=== PATIENT | male | born 2000 | race Caucasian/White ===

== ENCOUNTER 2025-02-23 08:46 | Emergency (ER) | payer OTHER, SELFPAY ==
--- NOTE | ~2025-02-23 | CT_ITS ---
EXAMINATION: CT ABDOMEN PELVIS WITHOUT IV CONTRAST HISTORY: R flank/RLQ pain, ? stone COMPARISON: There are no prior studies available for comparison. TECHNIQUE: CT scan of the abdomen and pelvis was performed without contrast using standard departmental protocol. Coronal and sagittal reformatted images were generated and reviewed. Oral contrast material was not administered per department protocol. This CT exam was performed with one or more of the following dose reduction techniques: automated exposure control, adjustment of the mA and/or kV according to patient size, use of iterative reconstruction technique. DLP: 273 mGy-cm FINDINGS: LOWER CHEST: The visualized lung bases are clear. There is no pleural effusion. CARDIOVASCULATURE: The heart is normal in size. There is no pericardial effusion. LIVER: The liver is normal in size and contour. The liver has an unremarkable unenhanced appearance. GALLBLADDER / BILE DUCTS: The gallbladder is unremarkable. There is no intra or extrahepatic biliary ductal dilatation. SPLEEN: The spleen is normal in size and has an unremarkable unenhanced appearance. PANCREAS: The pancreas has an unremarkable unenhanced appearance. ADRENAL GLANDS: Unremarkable. KIDNEYS/RETROPERITONEUM: No renal calculi are identified. There is mild right hydronephrosis secondary to a 2 mm mid ureteral calculus at the level of the superior endplate of L4. LYMPH NODES: No retroperitoneal lymphadenopathy is identified in the abdomen or pelvis. VASCULATURE: The abdominal aorta is normal in caliber. MESENTERY/PERITONEUM: No free fluid. No masses. There is no free intraperitoneal gas. STOMACH: The stomach is collapsed, limiting evaluation. SMALL BOWEL: The small bowel is normal in caliber. COLON: The colon is unremarkable. APPENDIX: Normal. URINARY BLADDER/PELVIC ORGANS: The urinary bladder is collapsed, limiting evaluation. The prostate is normal in size. BONES / SOFT TISSUES: No suspicious bony or soft tissue abnormalities. CT/CT abdomen pelvis wo IV con IMPRESSION: Mild right hydronephrosis secondary to a 2 mm mid ureteral calculus. Electronically signed by: Rick Farmer MD 02/23/2025 10:30 AM EDT
[2025-02-23 08:48] VITALS: BP 110/78; PULSE 67; RESP 14; TEMP 36.9; O2SAT 98; BMI 20.8
--- NOTE | 2025-02-23 08:56 | ED_ITS ---
HPI - General Adult General Chief complaint: Abdominal Pain Stated complaint: pain in lower abd Time Seen by Provider: 02/23/25 08:54 Source: patient, RN notes reviewed and old records reviewed Mode of arrival: ambulatory Limitations: no limitations History of Present Illness ED Provider: Darrel [facility] narrative: Patient is a 24-year-old male presenting in the emergency department with complaint of 3 days of right flank pain radiating to right lower quadrant with associated nausea and vomiting. States he did have some dark colored urine last night but the color returned to normal this morning. Denies fevers. Mother reports history of kidney stones for herself. MD complaint: Flank pain Onset (ago): day(s) Related Data Previous Rx's ?Medication ?Instructions ?Recorded ondansetron 4 mg disintegrating 4 mg PO Q8H PRN nausea and 02/23/25 tablet vomiting #10 tabs oxycodone 5 mg tablet 5 mg PO Q8H PRN severe pain (scale 02/23/25 score 7-10) #8 tabs prednisone 20 mg tablet 20 mg PO DAILY #7 tabs 02/23 tamsulosin 0.4 mg capsule 0.4 mg PO DAILY #14 caps Allergies Allergy/AdvReac Type Severity Reaction Status Date / Time amoxicillin Allergy Anaphylaxis Verified 02/23/25 08:51 Review of Systems 2 Review of Systems: As per HPI Yes all other systems are reviewed and are negative Constitutional: Constitutional: Reports as per HPI [facility] Social History Social History Alcohol intake: current Alcohol intake frequency: a few times a month Smoked in Last 30 Days: No Advance Directives: No Advance Directives Information Provided: Yes Do you have a plan to hurt others: No Plan Physical Exam ED Vital Signs: Vital Signs - 24 hr 02/23/25 08:48 02/23/25 09:52 02/23/25 10:00 Temperature 98.4 F 98.7 F 98.1 F Pulse Rate 67 66 57 Respiratory Rate 14 20 15 Blood Pressure 110/78 107/69 107/58 L Pulse Oximetry 98 99 99 Oxygen Delivery Method Room Air Room Air Room Air 02/23/25 11:53 Temperature 98.2 F Pulse Rate 60 Respiratory Rate 12 Blood Pressure 100/60 Pulse Oximetry 100 Oxygen Delivery Method Room Air BMI result Body Mass Index 20.8 Vital signs have been reviewed and appear to be correct. Blood pressure normal. Heart rate normal. Respiratory rate normal. Temperature normal. Oxygen saturation normal. Const General: cooperative, healthy appearing and no acute distress Orientation/consciousness: oriented to person, oriented to place, oriented to time and patient oriented x3 Limitations: no limitations HENMT Head: Yes normocephalic and Yes atraumatic Ears: external ears normal General nose exam: Normal external nose present Face and sinus: Yes face symmetric Mouth: oropharynx normal and moist mucous membranes Throat: Yes uvula midline Eyes Pupils: Equal, round and reactive pupils present Neck Neck: Yes normal visual inspection and Yes supple Resp Effort & Inspection: normal respiratory effort and able to speak in complete sentences Auscultation: clear to auscultation bilaterally Cardio Rate: regular rate Rhythm: regular rhythm Heart sounds: S1 normal heart sound present and S2 normal heart sound present GI Palpation (GI): Soft to palpation, Tenderness to palpation present (GI) in the RLQ, no guarding and No Rebound tenderness present Auscultation: normoactive bowel sounds General: Yes CVA tenderness on the right Back/Spine/Pelvis Back: CVA tenderness Skin General skin exam: elasticity normal and turgor normal Neuro General: oriented to person, oriented to place, oriented to time, patient oriented x3, moves all extremities, no focal motor deficits and CN's II-XI intact bilaterally Cranial nerves: Yes Equal, round and reactive pupils present Cognition (Neuro): normal cognition Extrem General: Yes full ROM, Yes no pedal edema and Yes no calf tenderness Psych Mental Status: mental status grossly normal Affect: normal affect Thought process: Normal thought process present Medications Administered Discontinued Medications Generic Name Dose Route Start Last Admin Trade Name Darrell PRN Reason Stop Dose Admin Ketorolac Tromethamine 15 mg 02/23/25 09:14 02/23/25 09:58 Ketorolac Tromethamine 15 Mg/Ml Vial IVPUSH 02/23/25 09:15 15 mg ONCE ONE Administration Ondansetron HCl 4 mg 02/23/25 09:14 02/23/25 09:58 Ondansetron Hcl 4 Mg/2 Ml Vial IVPUSH 02/23/25 09:15 4 mg ONCE ONE Administration Medical Decision Making Medical Decision Making [facility] Narrative: Patient is a 24-year-old male presenting in the emergency department with complaint of 3 days of right flank pain radiating to right lower quadrant with associated nausea and vomiting. On exam patient is awake, A+Ox3, VS WNL, afebrile, normal neurological exam without focal deficits, physical exam findings as above. Given reported symptoms and physical exam findings, initial differential includes but is not limited to renal colic, obstructing calculi, hydronephrosis, UTI/pyelonephritis. Less likely appendicitis. Labs notable for last leukocytosis, anemia, no evidence of YOMAIRA. CT A/P notable for 2 mm obstructing mid ureter calculi on right side with mild hydronephrosis. My interpretation is in agreement with the radiologist's interpretation. Results discussed with patient and mother and all questions answered. UA is without evidence of infection. Case discussed with Dr. Chang who is in agreement with discharge home for outpatient treatment on prednisone, Flomax, Zofran and oxycodone for severe pain. Return precautions discussed with patient and mother at bedside. Patient verbalized understanding of and agreement with plan. Differential Diagnosis Differential Diagnoses: The differential diagnosis associated with the presentation includes As per [facility] Admission/Observation Consideration of admission/observation: Escalation of care including admission/observation considered Patient would have been admitted to the hospital had their work up had any findings where hospital admission was appropriate and their clinical presentation warranted hospital admission. Lab Data [facility] Lab Attestation statement: I reviewed the patient's lab results. As per [facility] 02/23/25 09:03 02/23/25 09:03 Labs: Lab Results 02/23/25 02/23/25 Range/Units 09:03 10:47 WBC 10.9 H (4.8-10.8) X10*3/uL RBC 4.57 L (4.60-5.80) X10*6/uL Hgb 12.8 L (14.0-18.0) g/dl Hct 37.5 L (42.0-52.0) % MCV 82.1 (80.0-98.0) fL MCH 28.0 (27.0-33.0) pg MCHC 34.1 (31.0-36.0) g/dl RDW 12.5 (11.0-16.0) % Plt Count 159 L (160-400) X10*3/uL MPV 11.8 (9.4-12.4) fL Immature Gran % (Auto) 0.4 (0.0-0.4) % Neut % (Auto) 75.2 H (45-73) % Lymph % (Auto) 13.9 L (20-40) % [place] % (Auto) 10.3 (2-11) % Eos % (Auto) 0.0 (0-4) % Baso % (Auto) 0.2 (0-2) % Lymph # (Auto) 1.5 (1.2-4.9) X10*3/uL [place] # (Auto) 1.1 (0.1-1.2) X10*3/uL Eos # (Auto) 0.0 (0.0-0.4) X10*3/uL Baso # (Auto) 0.0 (0.0-0.2) X10*3/uL Abs Immat Gran (auto) 0.04 H (0.00-0.03) X10*3/uL Absolute Neuts (auto) 8.2 (2.0-8.3) x10*3/uL Absolute Nucleated RBC 0.000 (0.0-0.012) X10*3/uL Nucleated RBC % (auto) 0.0 (0.0-0.2) /100WBC Sodium 140 (135-145) mmol/L Potassium 3.5 (3.3-5.1) mmol/L Chloride 104 (96-108) mmol/L Carbon Dioxide 26 (22-29) mmol/L Anion Gap 14 (12-20) BUN 17 H (9-16) mg/dL Creatinine 1.11 (0.5-1.4) mg/dL Estim Creat Clear Calc 83.7 Estimated GFR > 60 Random Glucose 107 (60-115) mg/dL Calcium 9.1 (8.4-10.2) mg/dL Magnesium 1.6 (1.6-2.6) mg/dL Total Bilirubin 1.9 H (0.0-1.0) mg/dL AST 24 (5-37) U/L ALT 31 (0-40) U/L Alkaline Phosphatase 68 (39-117) U/L Total Protein 7.2 (6.5-8.0) g/dL Albumin 5.1 H (3.5-5.0) g/dL Lipase 14 (8-78) U/L Urine Color Yellow Urine Appearance Clear Urine pH 6.5 (5.0-9.0) Ur Specific [place] >= 1.030 H (1.005-1.025) Urine Protein 30 (1+) H (Neg-Trace) mg/dL Urine Glucose (UA) Negative (Negative) mg/dL Urine Ketones Trace (Negative) mg/dL Urine Blood Large (3+) H (Negative) Urine Nitrite Negative (Negative) Ur Leukocyte Esterase Negative (Negative) Urine RBC 11-20 H (0-2) /HPF Urine WBC 0-5 (0-5) /HPF Ur Squamous Epith Cells 0-2 (0-2) /HPF Urine Bacteria None Seen (None Seen) Hyaline Casts 3-5 (0-2) /LPF Independent Interpretation I performed an independent interpretation of an: CT Scan Interpretation: 2 mm obstructing calculi right mid ureter with mild hydronephrosis on CT abdomen pelvis Radiology Impression Discussion of test interpretation with radiology: I have reviewed the radiologist's reading. Radiologist Impression: CT/CT abdomen pelvis wo IV con IMPRESSION: Mild right hydronephrosis secondary to a 2 mm mid ureteral calculus. External Record Review External record reviewed: Inpatient record, Office record and Outpatient record Prescription Management I considered prescription management with: Pain Medication and Other Critical Care Time Critical Care Time Critical Care Time: Yes Total Critical Care Time: 33 Attestation: I have personally provided critical care time exclusive of time spent on separately billable procedures. Time includes review of lab data, radiology results, discussion with consultants, and monitoring for potential decompensation. Intervention performed as documented. Discharge Plan Discharge Clinical Impression: Calculus, ureteral, Hydronephrosis concurrent with and due to calculi of kidney and ureter Patient Disposition: Home, Self-Care Instructions: Renal Colic (ED), Low Oxalate Diet (ED), Hydronephrosis (ED), Ureteral Stones (ED) Additional Instructions: You were evaluated in the emergency department for flank pain. Your CT scan showed evidence of a stone in your right ureter. The stone is 2 mm which will likely pass on its own. You are being prescribed prednisone to decrease inflammation, tamsulosin to allow the stone to pass more easily, and oxycodone as needed for severe pain. You can also take 600 mg of ibuprofen every 6 hours as needed for pain. Your being prescribed ondansetron which you can use every 8 hours as needed for nausea. You are being referred to Urology. Return to the emergency department if you develop worsening pain, persistent vomiting, fever 100.4? or greater, inability to urinate, or any other concerning symptoms. [facility] will be contacting you within 2 business?days after being discharged from the Emergency?Department.? During this?phone call, they will inform you when your follow up appointment will be scheduled. If you have not received a call from [facility] after 2 business?days, please call the?office at [phone]. Prescriptions: New prednisone 20 mg tablet 20 mg PO DAILY Qty: 7 0RF tamsulosin 0.4 mg capsule 0.4 mg PO DAILY Qty: 14 0RF ondansetron 4 mg tablet,disintegrating 4 mg PO Q8H PRN (Reason: nausea and vomiting) Qty: 10 0RF oxycodone 5 mg tablet 5 mg PO Q8H PRN (Reason: severe pain (scale score 7-10)) Qty: 8 0RF Rx Instructions: Partial Fill upon patient request. Referrals: [facility] [Provider Group, Urology] Clinical Impression: Hydronephrosis concurrent with and due to calculi of kidney and ureter; Calculus, ureteral Stand Alone Forms: Work/School Release Print Language: Latvian
[2025-02-23 09:06] LABS: MANUAL DIFF FLAG NO
[2025-02-23 09:13] LABS: Basophils Percent Auto 0.2 % (0-2); Hematocrit 37.5 % (42.0-52.0); Hemoglobin 12.8 g/dl (14.0-18.0); Imm Gran Abs Auto 0.04 X10*3/uL (0.00-0.03); Imm Gran Pct Auto 0.4 % (0.0-0.4); Lymphocytes Absolute Auto 1.5 X10*3/uL (1.2-4.9); Lymphocytes Percent Auto 13.9 % (20-40); Mean Corpuscular HGB Conc 34.1 g/dl (31.0-36.0); Mean Corpuscular Volume 82.1 fL (80.0-98.0); Mean Platelet Volume 11.8 fL (9.4-12.4); Monocytes Absolute Auto 1.1 X10*3/uL (0.1-1.2); Monocytes Percent Auto 10.3 % (2-11); Neutrophils Absolute Auto 8.2 x10*3/uL (2.0-8.3); Neutrophils Percent Auto 75.2 % (45-73); Platelet Count 159 X10*3/uL (160-400); Red Blood Count 4.57 X10*6/uL (4.60-5.80); Red Cell Distribution Width 12.5 % (11.0-16.0); White Blood Count 10.9 X10*3/uL (4.8-10.8)
[2025-02-23 09:25] LABS: Alanine Aminotransferase 31 U/L (0-40); Albumin Level 5.1 g/dL (3.5-5.0); Alkaline Phosphatase 68 U/L (39-117); Anion Gap 14 (12-20); Aspartate Amino Transferase 24 U/L (5-37); Bilirubin Total 1.9 mg/dL (0.0-1.0); Blood Urea Nitrogen 17 mg/dL (9-16); Calcium 9.1 mg/dL (8.4-10.2); Carbon Dioxide 26 mmol/L (22-29); Chloride 104 mmol/L (96-108); Creatinine Clr Calc Pharmacy 83.7; Estimated Glomerular Filt Rate > 60; Glucose Random 107 mg/dL (60-115); Lipase 14 U/L (8-78); Magnesium 1.6 mg/dL (1.6-2.6); Potassium 3.5 mmol/L (3.3-5.1); Sodium 140 mmol/L (135-145); Total Protein 7.2 g/dL (6.5-8.0)
[2025-02-23 09:52] VITALS: BP 107/69; PULSE 66; RESP 20; TEMP 37.1; O2SAT 99
[2025-02-23] MEDS: ondansetron HCL 4 MG/2 ML VIAL IVPUSH (09:58)
[2025-02-23] MEDS: Ketorolac Tromethamine 15 MG/ML VIAL IVPUSH (09:58)
[2025-02-23 10:00] VITALS: BP 107/58; PULSE 57; RESP 15; TEMP 36.7; O2SAT 99
--- NOTE | 2025-02-23 10:03 | PC.NURSE ---
24 M presents to ED with R abdominal pain 5/10 that radiates to R back since yesterday with n/v/d. A+Ox4 and ambulatory. Pt denies any SOB, RR even and unlabored. Pt denies any chest pain.
--- OUTSIDE RECORDS SUMMARY | 2025-02-23 10:08 | XMS_ITS | Clinical Summary ---
Author Organization [facility] Address [address] [place] [address] Phone Care Team Providers Care Wireline Operator Name Role Phone Physician, Pcp Unknown Primary Care Provider Kaylee vailable Allergies Active Allergy Reactions Criticality Noted Date Comments Amoxicillin Anaphylaxis High 02/22/2025 Encounters Date Type Department Care Team Description 02/22/2025 7:13 PM EDT - 02/23/2025 1:15 AM EDT Emergency [facility] Emergency [address] [place] [address] Discharge Disposition: Home or Self Care from Last 3 Months Medical History Medical History Date Comments No known health problems Social History Tobacco Use Types Packs/Day Years Used Date Smoking Tobacco: Never Smokeless Tobacco: Former Tobacco Cessation:Counseling Given: Not Answered Alcohol Use Standard Drinks/Week Comments Yes 0 (1 standard drink = 0.6 oz pur e alcohol) Sex and Gender Information Value Date Recorded Sex Assigned at Not on file Legal Sex Male 2:26 AM EST Gender Identity Not on file Sexual Orientation Not on file Obstetrics History Last Filed Vital Signs Vital Sign Reading Time Taken Comments Blood Pressure 103/67 02/22/2025 10:36 PM EDT Pulse 67 02/22/2025 10:36 PM EDT Temperature 37 C (98.6 F) 02/22/2025 10:36 PM EDT Respiratory Rate 16 02/22/2025 10:36 PM EDT Oxygen Saturation 99% 02/22/2025 10:36 PM EDT Inhaled Oxygen Concentration - - Weight 56.7 kg (125 lb) 02/22/2025 7:16 PM EDT Height 170.2 cm (5' 7 ) 02/22/2025 7:16 PM EDT Body Mass Index 19.58 02/22/2025 7:16 PM EDT Plan of Treatment Health Maintenance Due Date Last Done Comments HPV Vaccines (1 - Male 3-dose series) 2017 Meningococcal B Vaccine (1 of 2 - Standard) 2018 DTaP,Tdap,and Td Vaccines (7 - Td or Tdap) 09/06/2022 09/06/2012, 01/20/2007, 07/19/2003, Additional history exists COVID-19 Vaccine (1 - season) 2024 Influenza Vaccine (Season Ended) 2025 07/02/2017, 10/04/2014 Hepatitis B Vaccines Completed 01/31/2003, 2002, 2002 HIB Vaccines Completed 07/19/2003, 10/30, 2002, Additional history exists Pneumococcal Vaccine: Pediatrics (0 to 5 Years) and At-Risk Patients (6 to 64 Years) Completed 07/19/2003, 2002, 2002, Additional history exists IPV Vaccines Completed 01/20/2007, 10/2002, 2002, Additional history exists MMR Vaccines Completed 01/20/2007, 04/11/2003 Varicella Vaccines Completed 01/20/2007, 04/11/2003 Meningococcal ACWY Vaccine Aged Out 10/04/2014 N o longer eligible based on patient's age to complete this topic Hepatitis A Vaccines Aged Out No long er eligible based on patient's age to complete this topic RSV Immunization Patients Under 20 months Aged Out No longer eligible based on patient's age to complete this topic Procedures Procedure Name Priority Date/Time Associated Diagnosis Comments MUNGUIA URINE CULTURE TUBE STAT 02/22/2025 10:56 PM EDT URINALYSIS WITH REFLEX MICROSCOPIC AND CULTURE STAT 02/22/2025 10:56 PM EDT URINALYSIS WITH REFLEX MICROSCOPIC AND CULTURE STAT 02/22/2025 10:56 PM EDT CREATINE KINASE AND CKMB Add-On 02/22/2025 10:42 PM EDT CBC WITH AUTO DIFFERENTIAL STAT 02/22/2025 10:42 PM EDT LIPASE STAT 02/22/2025 10:42 PM EDT COMPREHENSIVE METABOLIC PANEL STAT 02/22/2025 10:42 PM EDT CBC AND DIFFERENTIAL STAT 02/22/2025 10:42 PM EDT from Last 3 Months Results * (ABNORMAL) Urinalysis with reflex microscopic and culture (02/22/2025 10:56 PM EDT) Pathologist [facility] Specific [place] Urine 1.028 1.003 - 1.030 LAB URINALYSIS - AUTOMATED METHOD 02/22/2025 11:29 PM [facility] pH, Urine 5.5 5.0 - 8.0 pH LAB URINALYSIS - AUTOMATED METHOD 02/22/2025 11:29 PM [facility] Leukocytes, Urine Small(A) Negative LAB URINALYSIS - AUTOMATED METHOD 02/22/2025 11:29 PM [facility] Nitrite, Urine Negative Negative LAB URINALYSIS - AUTOMATED METHOD 02/22/2025 11:29 PM [facility] Protein, Urine 300(A) <=Trace mg/dL LAB URINALYSIS - AUTOMATED METHOD 02/22/2025 11:29 PM [facility] Glucose, Urine Negative Negative mg/dL LAB URINALYSIS - AUTOMATED METHOD 02/22/2025 11:29 PM [facility] Ketones, Urine 15(A) Negative mg/dL LAB URINALYSIS - AUTOMATED METHOD 02/22/2025 11:29 PM [facility] Urobilinogen, Urine 1.0 0.2 - 1.0 mg/dL LAB URINALYSIS - AUTOMATED METHOD 02/22/2025 11:29 PM [facility] Bilirubin, Urine Negative Negative LAB URINALYSIS - AUTOMATED METHOD 02/22/2025 11:29 PM [facility] Blood, Urine Large(A) Negative LAB URINALYSIS - AUTOMATED METHOD 02/22/2025 11:29 PM EDT [facility] RBC, Urine 75(H) 0 - 4 /HPF LAB URINALYSIS - AUTOMATED METHOD 02/22/2025 11:29 PM EDT [facility] WBC, Urine 8.2(H) 0 - 4 /HPF LAB URINALYSIS - AUTOMATED METHOD 02/22/2025 11:29 PM EDT [facility] Squamous Epithelial, Urine 8 0 - 60 /LPF LAB URINALYSIS - AUTOMATED METHOD 02/22/2025 11:29 PM EDT [facility] Bacteria, Urine Negative Negative /HPF LAB URINALYSIS - AUTOMATED METHOD 02/22/2025 11:29 PM EDT [facility] Hyaline Casts, Urine 3.8(H) 0 - 3 /LPF LAB URINALYSIS - AUTOMATED METHOD 02/22/2025 11:29 PM EDT [facility] Urine Urine specimen obtained by clean catch procedure / Unknown Non-blood Collection / Unknown 02/22/2025 10:56 PM EDT 02/22/2025 11:12 PM EDT us Danneille Wilde DO LAB URINE ORDERABLES Sosa l Result [facility] [address] [place] [address], * [place] urine culture tube (02/22/2025 10:56 PM EDT) Extra Tube Hold for add-ons. 02/23/2025 1:01 AM EDT [facility] Comment:Auto resulted. Urine Urine specimen obtained by clean catch procedure / Unknown Non-blood Collection / Unknown 02/22/2025 10:56 PM EDT 02/22/2025 11:12 PM EDT us Ting Ho Von Wilde DO LAB URINE ORDERABLES Sosa l Result [facility] [address] [place] [address], * (ABNORMAL) CBC auto differential (02/22/2025 10:42 PM EDT) WBC 12.9(H) 4.8 - 10.8 K/mcL LAB HEMETOLOGY METHOD 02/22/2025 10:55 PM EDT [facility] RBC 4.80 4.50 - 5.50 M/mcL LAB HEMETOLOGY METHOD 02/22/2025 10:55 PM EDT [facility] Hemoglobin 13.5 13.5 - 17.5 g/dL LAB HEMETOLOGY METHOD 02/22/2025 10:55 PM EDT [facility] Hematocrit 41.6(L) 42.0 - 54.0 % LAB HEMETOLOGY METHOD 02/22/2025 10:55 PM EDT [facility] MCV 86.5 79.0 - 98.0 FL LAB HEMETOLOGY METHOD 02/22/2025 10:55 PM EDT [facility] MCH 28.1 27.0 - 32.0 pcg LAB HEMETOLOGY METHOD 02/22/2025 10:55 PM EDT [facility] MCHC 32.5 32.0 - 37.0 g/dL LAB HEMETOLOGY METHOD 02/22/2025 10:55 PM EDT [facility] RDW 12.2 11.0 - 15.0 % LAB HEMETOLOGY METHOD 02/22/2025 10:55 PM EDT [facility] Platelets 156 130 - 400 K/mcL LAB HEMETOLOGY METHOD 02/22/2025 10:55 PM EDT [facility] MPV 11.7(H) 7.0 - 11.0 FL LAB HEMETOLOGY METHOD 02/22/2025 10:55 PM EDT [facility] NRBC 0.0 <1.0 % LAB HEMETOLOGY METHOD 02/22/2025 10:55 PM EDT [facility] NRBC Absolute 0.00 <0.10 K/mcL LAB HEMETOLOGY METHOD 02/22/2025 10:55 PM EDT [facility] Neutrophils Relative 90.2 % LAB HEMETOLOGY METHOD 02/22/2025 10:55 PM EDT [facility] Lymphocytes Relative 3.8 % LAB HEMETOLOGY METHOD 02/22/2025 10:55 PM EDT [facility] Monocytes Relative 5.3 % LAB HEMETOLOGY METHOD 02/22/2025 10:55 PM EDT [facility] Eosinophils Relative 0.0 % LAB HEMETOLOGY METHOD 02/22/2025 10:55 PM EDT [facility] Basophils Relative 0.2 % LAB HEMETOLOGY METHOD 02/22/2025 10:55 PM EDT [facility] Immature Granulocytes Relative 0.5 % LAB HEMETOLOGY METHOD 02/22/2025 10:55 PM EDT [facility] Neutrophils Absolute 11.67(H) 1.50 - 7.00 K/mcL LAB HEMETOLOGY METHOD 02/22/2025 10:55 PM EDT [facility] Lymphocytes Absolute 0.49(L) 1.00 - 5.00 K/mcL LAB HEMETOLOGY METHOD 02/22/2025 10:55 PM EDT [facility] Monocytes Absolute 0.68 0.20 - 1.00 K/mcL LAB HEMETOLOGY METHOD 02/22/2025 10:55 PM EDT [facility] Eosinophils Absolute 0.00 0.00 - 0.50 K/mcL LAB HEMETOLOGY METHOD 02/22/2025 10:55 PM EDT [facility] Basophils Absolute 0.03 0.00 - 0.20 K/mcL LAB HEMETOLOGY METHOD 02/22/2025 10:55 PM EDT [facility] Immature Granulocytes Absolute 0.06(H) 0.00 - 0.03 K/mcL LAB HEMETOLOGY METHOD 02/22/2025 10:55 PM EDT [facility] Blood Venous blood specimen / Unknown Venipuncture / Unknown 02/22/2025 10:42 PM EDT 02/22/2025 10:46 PM EDT Candelario Anand DO LAB BLOOD ORDERABLES Final Res ult [facility] [address] [place] [address], [place] [phone] * Lipase (02/22/2025 10:42 PM EDT) Lipase 15 13 - 75 unit/L LAB CHEMISTRY METHOD 02/22/2025 11:19 PM EDT [facility] Blood Venous blood specimen / Unknown Venipuncture / Unknown 02/22/2025 10:42 PM EDT 02/22/2025 10:46 PM EDT Candelario Anand DO LAB BLOOD ORDERABLES Final Res ult Performing Organization Address City/[facility]/ZIP Co de Phone Number [facility] [address] [place] [address], [place] [phone] * (ABNORMAL) Creatine kinase and CKMB (02/22/2025 10:42 PM EDT) Total CK 186 22 - 269 unit/L LAB CHEMISTRY METHOD 02/22/2025 11:22 PM EDT [facility] CK-MB <1.0(L) 1.0 - 3.6 ng/mL LAB CHEMISTRY METHOD 02/22/2025 11:22 PM EDT [facility] CK-MB Index <0.0(L) 0.0 - 5.0 LAB CHEMISTRY METHOD 02/22/2025 11:22 PM [facility] Blood Venous blood specimen / Unknown Venipuncture / Unknown 02/22/2025 10:42 PM EDT 02/22/2025 10:46 PM EDT us Dannielle Wilde DO LAB BLOOD ORDERABLES Sosa l Result [facility] [address] [place] [address], [place] [phone] * (ABNORMAL) Comprehensive metabolic panel (02/22/2025 10:42 PM EDT) Sodium 140 133 - 145 mmol/L LAB CHEMISTRY METHOD 02/22/2025 11:19 PM [facility] Potassium 4.6 3.5 - 5.5 mmol/L LAB CHEMISTRY METHOD 02/22/2025 11:19 PM [facility] Chloride 106 96 - 110 mmol/L LAB CHEMISTRY METHOD 02/22/2025 11:19 PM [facility] CO2 24 21 - 32 mmol/L LAB CHEMISTRY METHOD 02/22/2025 11:19 PM [facility] Anion Gap 10 3 - 11 LAB CHEMISTRY METHOD 02/22/2025 11:19 PM [facility] Glucose 108(H) 70 - 100 mg/dL LAB CHEMISTRY METHOD 02/22/2025 11:19 PM [facility] BUN 14 5 - 25 mg/dL LAB CHEMISTRY METHOD 02/22/2025 11:19 PM [facility] Creatinine 1.60(H) 0.70 - 1.30 mg/dL LAB CHEMISTRY METHOD 02/22/2025 11:19 PM [facility] eGFR 62 >=60 mL/min/1. 73m2 LAB CHEMISTRY METHOD 02/22/2025 11:19 PM [facility] Comment:Calculation based on the Chronic Kidney Disease Epidemiology Collaboration (CKD-EPI) equation refit without adjustment for race. BUN/Creatinine Ratio 8.8 LAB CHEMISTRY METHOD 02/22/2025 11:19 PM EDT [facility] Calcium 9.5 8.5 - 10.5 mg/dL LAB CHEMISTRY METHOD 02/22/2025 11:19 PM [facility] AST (SGOT) 18 10 - 42 unit/L LAB CHEMISTRY METHOD 02/22/2025 11:19 PM T [facility] ALT (SGPT) 38 10 - 60 unit/L LAB CHEMISTRY METHOD 02/22/2025 11:19 PM T [facility] Alkaline Phosphatase 81 42 - 121 unit/L LAB CHEMISTRY METHOD 02/22/2025 11:19 PM [facility] Total Protein 7.7 6.0 - 8.0 g/dL LAB CHEMISTRY METHOD 02/22/2025 11:19 PM T [facility] Albumin 4.8 3.2 - 5.0 g/dL LAB CHEMISTRY METHOD 02/22/2025 11:19 PM T [facility] Total Bilirubin 1.9(H) 0.0 - 1.4 mg/dL LAB CHEMISTRY METHOD 02/22/2025 11:19 PM T [facility] Blood Venous blood specimen / Unknown Venipuncture / Unknown 02/22/2025 10:42 PM EDT 02/22/2025 10:46 PM EDT us Candelario Anand DO LAB BLOOD ORDERABLES Final Res ult [facility] [address] [place] [address], from Last 3 Months Insurance [facility] [place] [address] Care Teams Wireline Operator Relationship Specialty Start Date End Date Physician, Pcp Unknown PCP - General 02/23/25
[2025-02-23 10:54] LABS: Appearance Urine Clear; Color Urine Yellow; Glucose Urine UA Negative (Negative); Leukocyte Esterase Urine Negative (Negative); Nitrite Urine Negative (Negative); PH 6.5 (5.0-9.0); Specific Gravity - Urine >= 1.030 (1.005-1.025); UMIC TRIGGER UACC YES; Urine Blood Large (3+) (Negative); Urine Ketones Trace mg/dL (Negative); Urine Protein 30 (1+) mg/dL (Neg-Trace)
[2025-02-23 11:07] LABS: Bacteria Urine None Seen (None Seen); Squamous Epithelial Cell Urine 0-2 /HPF (0-2); WBC Urine 0-5 /HPF (0-5)
[2025-02-23 11:53] VITALS: BP 100/60; PULSE 60; RESP 12; TEMP 36.8; O2SAT 100
[2025-02-23 12:36] VITALS: BP 100/60; PULSE 60; RESP 12; TEMP 36.8; O2SAT 100
== END 2025-02-23 12:37 | disposition home or self-care (01) ==
PROVIDERS: Registered Nurse Emergency; Emergency Provider Emergency Medicine
DX: N13.2 Hydronephrosis with renal and ureteral calculous obstruction (principal); R10.31 Right lower quadrant pain; R11.2 Nausea with vomiting, unspecified; Z79.899 Other long term (current) drug therapy
CPT/HCPCS: 36415; 74176; 80053; 81001; 83690; 83735; 85025; 96374; 96375; 99284; J1885; J2405

== ENCOUNTER → 2025-02-23 10:00 | Outpatient (BNV) | payer OTHER, SELFPAY | PROVIDERS: Emergency Provider Emergency Medicine; Visit Provider Radiology Diagnostic Radiology | DX: N20.1 Calculus of ureter (principal) | CPT/HCPCS: 74176 ==

== ENCOUNTER 2025-04-21 10:06 | Outpatient (AMB) | payer OTHER, SELFPAY ==
--- OUTSIDE RECORDS SUMMARY | 2025-04-21 10:09 | XMS_ITS | Clinical Summary ---
Author Organization [facility] Address [address] [place] [address] Phone Care Team Providers Care Layup Worker Name Role Phone Physician, Pcp Unknown Primary Care Provider Kaylee vailable Allergies Active Allergy Reactions Criticality Noted Date Comments Amoxicillin Anaphylaxis High 02/22/2025 Encounters Date Type Department Care Team Description 02/22/2025 7:13 PM EDT - 02/23/2025 1:15 AM EDT Emergency [facility] [address] [place] [address] Discharge Disposition: Home or Self [...] exists COVID-19 Vaccine (1 - season) 2024 Depression Screening 08/31/2024 HIV Screening 02/23/2025 Hepatitis C Screening 02/23/2025 Social Influencers of Health Screening 02/23/2025 Influenza Vaccine (#1) 2025 07/02/2017, 2014 Hepatitis B Vaccines Completed 01/31/2003, 2002, 2002 HIB Vaccines Completed 07/19/2003, 10/30, 2002, Additional history exists Pneumococcal Vaccine: Pediatrics (0 to 5 Years) and At-Risk Patients (6 to 49 Years) Completed 07/19/2003, 2002, 2002, Additional history [...] AND CULTURE STAT 02/22/2025 10:56 PM EDT CULTURE URINE STAT 02/22/2025 10:56 PM EDT CREATINE KINASE AND CKMB Add-On 02/22/2025 10:42 PM EDT CBC WITH AUTO DIFFERENTIAL STAT 02/22/2025 10:42 PM EDT LIPASE STAT 02/22/2025 10:42 PM EDT COMPREHENSIVE METABOLIC PANEL STAT 02/22/2025 10:42 PM EDT CBC AND DIFFERENTIAL STAT 02/22/2025 10:42 PM EDT from Last 3 Months Results * (ABNORMAL) Urinalysis with reflex microscopic and culture (02/22/2025 10:56 PM EDT) Specific [place] Urine 1.028 1.003 - 1.030 LAB URINALYSIS - AUTOMATED METHOD 02/22/2025 11:29 PM [facility] pH, Urine 5.5 5.0 - 8.0 pH LAB URINALYSIS - AUTOMATED METHOD 02/22/2025 11:29 PM [facility] Leukocytes, Urine Small(A) Negative LAB URINALYSIS - AUTOMATED METHOD 02/22/2025 11:29 PM [facility] Nitrite, Urine Negative Negative LAB URINALYSIS - AUTOMATED METHOD 02/22/2025 11:29 PM [facility] Protein, Urine 300(A) <=Trace mg/dL LAB URINALYSIS - AUTOMATED METHOD 02/22/2025 11:29 PM [facility] Glucose, Urine Negative Negative mg/dL LAB URINALYSIS - AUTOMATED METHOD 02/22/2025 11:29 PM [facility] Ketones, Urine 15(A) Negative mg/dL LAB URINALYSIS - AUTOMATED METHOD 02/22/2025 11:29 PM [facility] Urobilinogen, Urine 1.0 0.2 - 1.0 mg/dL LAB URINALYSIS - AUTOMATED METHOD 02/22/2025 11:29 PM EDT [facility] Bilirubin, Urine Negative Negative LAB URINALYSIS - AUTOMATED METHOD 02/22/2025 11:29 PM EDT [facility] Blood, Urine Large(A) Negative LAB URINALYSIS - AUTOMATED METHOD 02/22/2025 11:29 PM [facility] RBC, Urine 75(H) 0 - 4 /HPF LAB URINALYSIS - AUTOMATED METHOD 02/22/2025 11:29 PM [facility] WBC, Urine 8.2(H) 0 - 4 /HPF LAB URINALYSIS - AUTOMATED METHOD 02/22/2025 11:29 PM [facility] Squamous Epithelial, Urine 8 0 - 60 /LPF LAB URINALYSIS - AUTOMATED METHOD 02/22/2025 11:29 PM [facility] Bacteria, Urine Negative Negative /HPF LAB URINALYSIS - AUTOMATED METHOD 02/22/2025 11:29 PM [facility] Hyaline Casts, Urine 3.8(H) 0 - 3 /LPF LAB URINALYSIS - AUTOMATED METHOD 02/22/2025 11:29 PM [facility] Urine Urine specimen obtained by clean catch procedure / Unknown Non-blood Collection / Unknown 02/22/2025 10:56 PM EDT 02/22/2025 11:12 PM EDT us Dannielle Wilde DO LAB URINE ORDERABLES Sosa l Result [facility] [address] [place] [address], * [place] urine culture tube (02/22/2025 10:56 PM EDT) Extra Tube Hold for add-ons. 02/23/2025 1:01 AM EDT [facility] Comment:Auto resulted. Urine Urine specimen obtained by clean catch procedure / Unknown Non-blood Collection / Unknown 02/22/2025 10:56 PM EDT 02/22/2025 11:12 PM EDT Dannielle Krishna Von Wilde LAB URINE ORDERABLES Sosa l Result Performing Organization Address City/[facility]/ZIP Co de Phone Number [facility] [address] [place] [address], [place] [phone] * Culture urine (02/22/2025 10:56 PM EDT) [facility] Culture, Urine No growth 02/24/2025 11:15 AM EDT [facility] Urine Urine specimen obtained by clean catch procedure / Unknown Non-blood Collection / Unknown 02/22/2025 10:56 PM EDT 02/22/2025 11:29 PM EDT Dannielle Wilde LAB MICROBIOLOGY - GENERA L ORDERABLES Final Result Performing Organization Address [facility]/ZIP Co de Phone Number [facility] [address] [place] [address], [place] [phone] * (ABNORMAL) CBC auto differential (02/22/2025 10:42 PM EDT) WBC 12.9(H) 4.8 - 10.8 K/[facility] LAB HEMETOLOGY METHOD 02/22/2025 10:55 PM EDT [facility] RBC 4.80 4.50 - 5.50 M/[facility] LAB HEMETOLOGY METHOD 02/22/2025 10:55 PM EDT [facility] Hemoglobin 13.5 13.5 - 17.5 g/dL LAB HEMETOLOGY METHOD 02/22/2025 10:55 PM EDT [facility] Hematocrit 41.6(L) 42.0 - 54.0 % LAB HEMETOLOGY METHOD 02/22/2025 10:55 PM EDT [facility] MCV 86.5 79.0 - 98.0 FL LAB HEMETOLOGY METHOD 02/22/2025 10:55 PM EDT [facility] MCH 28.1 27.0 - 32.0 pcg LAB HEMETOLOGY METHOD 02/22/2025 10:55 PM EDT [facility] MCHC 32.5 32.0 - 37.0 g/dL LAB HEMETOLOGY METHOD 02/22/2025 10:55 PM EDT [facility] RDW 12.2 11.0 - 15.0 % LAB HEMETOLOGY METHOD 02/22/2025 10:55 PM EDT [facility] Platelets 156 130 - 400 K/mcL LAB HEMETOLOGY METHOD 02/22/2025 10:[facility] MPV 11.7(H) 7.0 - 11.0 FL LAB HEMETOLOGY METHOD 02/22/2025 10:55 PM EDT [facility] NRBC 0.0 <1.0 % LAB HEMETOLOGY METHOD 02/22/2025 10:55 PM EDT [facility] NRBC Absolute 0.00 <0.10 K/mcL LAB HEMETOLOGY METHOD 02/22/2025 10:55 PM [facility] Neutrophils Relative 90.2 % LAB HEMETOLOGY METHOD 02/22/2025 10:55 PM EDT [facility] Lymphocytes Relative 3.8 % LAB HEMETOLOGY METHOD 02/22/2025 10:55 PM EDT [facility] Monocytes Relative 5.3 % LAB HEMETOLOGY METHOD 02/22/2025 10:55 PM EDT [facility] Eosinophils Relative 0.0 % LAB HEMETOLOGY METHOD 02/22/2025 10:55 PM EDT [facility] Basophils Relative 0.2 % LAB HEMETOLOGY METHOD 02/22/2025 10:55 PM EDT [facility] Immature Granulocytes Relative 0.5 % LAB HEMETOLOGY METHOD 02/22/2025 10:55 PM EDT [facility] Neutrophils Absolute 11.67(H) 1.50 - 7.00 K/mcL LAB HEMETOLOGY METHOD 02/22/2025 10:55 PM EDT [facility] Lymphocytes Absolute 0.49(L) 1.00 - 5.00 K/[facility] LAB HEMETOLOGY METHOD 02/22/2025 10:55 PM EDT [facility] Monocytes Absolute 0.68 0.20 - 1.00 K/[facility] LAB HEMETOLOGY METHOD 02/22/2025 10:55 PM EDT [facility] Eosinophils Absolute 0.00 0.00 - 0.50 K/[facility] LAB HEMETOLOGY METHOD 02/22/2025 10:55 PM EDT [facility] Basophils Absolute 0.03 0.00 - 0.20 K/[facility] LAB HEMETOLOGY METHOD 02/22/2025 10:55 PM EDT [facility] Immature Granulocytes Absolute 0.06(H) 0.00 - 0.03 K/mcL LAB HEMETOLOGY METHOD 02/22/2025 10:55 PM EDT [facility] Blood Venous blood specimen / Unknown Venipuncture / Unknown 02/22/2025 10:42 PM EDT 02/22/2025 10:46 PM EDT us Candelario Anand DO LAB BLOOD ORDERABLES Final Res ult [facility] [address] [place] [address], * Lipase (02/22/2025 10:42 PM EDT) Lipase 15 13 - 75 unit/L LAB CHEMISTRY METHOD 02/22/2025 11:19 PM EDT [facility] Blood Venous blood specimen / Unknown Venipuncture / Unknown 02/22/2025 10:42 PM EDT 02/22/2025 10:46 PM EDT us Candelario Anand DO LAB BLOOD ORDERABLES Final Res ult Performing Organization Address [facility]/ZIP Co de Phone Number [facility] [address] [place] [address], [place] [phone] * (ABNORMAL) Creatine kinase and CKMB (02/22/2025 10:42 PM EDT) Total CK 186 22 - 269 unit/L LAB CHEMISTRY METHOD 02/22/2025 11:22 PM EDT [facility] CK-MB <1.0(L) 1.0 - 3.6 ng/mL LAB CHEMISTRY METHOD 02/22/2025 11:22 PM EDT [facility] CK-MB Index <0.0(L) 0.0 - 5.0 LAB CHEMISTRY METHOD 02/22/2025 11:22 PM EDT [facility] Blood Venous blood specimen / Unknown Venipuncture / Unknown 02/22/2025 10:42 PM EDT 02/22/2025 10:46 PM EDT us Dannielle Wilde DO LAB BLOOD ORDERABLES Sosa l Result Performing Organization Address [facility]/ZIP Co de Phone Number [facility] [address] [place] [address], [place] [phone] * (ABNORMAL) Comprehensive metabolic panel (02/22/2025 10:42 PM EDT) Pathologist [facility] Sodium 140 133 - 145 mmol/L LAB CHEMISTRY METHOD 02/22/2025 11:19 PM EDT [facility] Potassium 4.6 3.5 - 5.5 mmol/L LAB CHEMISTRY METHOD 02/22/2025 11:19 PM EDT [facility] Chloride 106 96 - 110 mmol/L LAB CHEMISTRY METHOD 02/22/2025 11:19 PM [facility] CO2 24 21 - 32 mmol/L LAB CHEMISTRY METHOD 02/22/2025 11:19 PM [facility] Anion Gap 10 3 - 11 LAB CHEMISTRY METHOD 02/22/2025 11:19 PM [facility] Glucose 108(H) 70 - 100 mg/dL LAB CHEMISTRY METHOD 02/22/2025 11:19 PM [facility] BUN 14 5 - 25 mg/dL LAB CHEMISTRY METHOD 02/22/2025 11:19 PM [facility] Creatinine 1.60(H) 0.70 - 1.30 mg/dL LAB CHEMISTRY METHOD 02/22/2025 11:19 PM [facility] eGFR 62 >=60 mL/min/1. 73m2 LAB CHEMISTRY METHOD 02/22/2025 11:19 PM [facility] Comment:Calculation based on the Chronic Kidney Disease Epidemiology Collaboration (CKD-EPI) equation refit without adjustment for race. BUN/Creatinine Ratio 8.8 LAB CHEMISTRY METHOD 02/22/2025 11:19 PM [facility] Calcium 9.5 8.5 - 10.5 mg/dL LAB CHEMISTRY METHOD 02/22/2025 11:19 PM [facility] AST (SGOT) 18 10 - 42 unit/L LAB CHEMISTRY METHOD 02/22/2025 11:19 PM [facility] ALT (SGPT) 38 10 - 60 unit/L LAB CHEMISTRY METHOD 02/22/2025 11:19 PM [facility] Alkaline Phosphatase 81 42 - 121 unit/L LAB CHEMISTRY METHOD 02/22/2025 11:19 PM [facility] Total Protein 7.7 6.0 - 8.0 g/dL LAB CHEMISTRY METHOD 02/22/2025 11:19 PM [facility] Albumin 4.8 3.2 - 5.0 g/dL LAB CHEMISTRY METHOD 02/22/2025 11:19 PM EDT [facility] Total Bilirubin 1.9(H) 0.0 - 1.4 mg/dL LAB CHEMISTRY METHOD 02/22/2025 11:19 PM EDT [facility] Blood Venous blood specimen / Unknown Venipuncture / Unknown 02/22/2025 10:42 PM EDT 02/22/2025 10:46 PM EDT us Candelario Anand DO LAB BLOOD ORDERABLES Final Res ult [facility] [address] [place] [address], [place] [phone] from Last 3 Months Insurance [facility] Care Teams Layup Worker Relationship Specialty Start Date End Date Physician, Pcp Unknown PCP - General 02/23/25
--- NOTE | 2025-04-21 10:20 | A.OFFVIS_ITS ---
Intake Visit Reasons: kidney stones Intake Note: new pt presents for: kidney stones urology medications: tamsulosin blood thinners: none ct done: 02/23/25 Benefits Coordinator Required: No Accompanied by: Self / Same As Patient Allergies amoxicillin Allergy (Verified 04/21/25 10:21) Anaphylaxis HPI Comments Details: Kodi is a pleasant male. They are seen for the following urologic conditions - nephrolithiasis In addition to stone UA today noted 2+ glucose Family history diabetes Recommend watch energy drinks Nephrolithiasis He presents for - initial evaluation for nephrolithiasis, Initial presentation through emergency room Presenting symptoms included right-sided flank pain Imaging - 02/22 2 mm mid right ureteric stone with mild hydro uretero nephrosis Laboratory investigations - creatinine 1.1, calcium 9.1 Stone composition - unknown 24 hour urine evaluation - none on file Interventions - none Current therapeutic plan - surveillance imaging - encourage lemon fluid and 2.5 L per day water - vitamin B6 PFSH Social History Alcohol intake: current Alcohol intake frequency: a few times a month Review of Systems Const Denies chills and Denies fever(s) Card Reports no additional complaints and Denies syncope Resp Denies cough GI Denies abdominal pain and Denies heartburn Reports as per HPI and Denies change in libido Neuro Denies syncope Psych Denies change in libido Endo Denies change in libido Physical Exam Const General: cooperative, healthy appearing, comfortable and no acute distress Orientation/consciousness: patient oriented x3 HEENT Face and sinus: Yes normal facial exam Mouth: moist mucous membranes Neck Neck: Yes normal visual inspection, Yes full ROM and Yes trachea midline Chest Chest palpation & inspection: normal inspection of the chest Resp Effort & Inspection: normal respiratory effort, able to speak in complete sentences and no respiratory distress GI Inspection: Yes normal to inspection Back/Spine/Pelvis Cervical Spine: normal cervical lordosis Thoracic/Lumbar Spine: thoracic and lumbar spine normal to inspection Skin General skin exam: no rashes or lesions noted Neuro General: patient oriented x3, gait normal, tone normal and moves all extremities Extrem General: Yes normal to inspection and Yes capillary refill normal Results AMB Urinalysis, Automated UA Leukoctes 0 Demond/uL Last Edit by LORENZO Ramires on 04/21/25 10:28 UA Nitrite Negative Last Edit by LORENZO Ramires on 04/21/25 10:28 UA Urobilinogen 0.2 mg/dL Last Edit by LORENZO Ramires on 04/21/25 10:2 8 UA Protein 0 mg/dL Last Edit by LORENZO Ramires on 04/21/25 10:28 UA pH 6.5 Last Edit by Kylie Odonnell CCM on 04/21/25 10:28 UA Blood 0 Yosi/uL Last Edit by LORENZO Ramires on 04/21/25 10:28 UA Specific [place] 1.005 Last Edit by Kylie Odonnell CCM on 04/21/25 10: 28 UA Ketone Negative Last Edit by Kylie Odonnell CCM on 04/21/25 10:28 UA Bilirubin 0 mg/dL Last Edit by LORENZO Ramires on 04/21/25 10:28 UA Glucose 500 mg/dL Last Edit by Kylie Odonnell CCM on 04/21/25 10:28 Results Reviewed Results Reviewed: Laboratory Last Values Urine pH (Auto) 6.5 04/21/25 10:27 Specific [place] (Auto) 1.005 04/21/25 10:27 Urine Protein (Auto) 0 mg/dL 04/21/25 10:27 Glucose (UA)(Auto) 500 mg/dL 04/21/25 10:27 Urine Ketones (Auto) Negative 04/21/25 10:27 Urine Blood (Auto) 0 [place]osi/uL 04/21/25 10:27 Urine Nitrite (Auto) Negative 04/21/25 10:27 Urine Bilirubin (Auto) 0 mg/dL 04/21/25 10:27 Urine Urobilinogen (Auto) 0.2 mg/dL 04/21/25 10:27 Leukocyte Esterase (Auto) 0 Demond/uL 04/21/25 10:27 Assessment & Plan Assessment & Plan (1) Nephrolithiasis: Code(s): N20.0 - Calculus of kidney Category: Medical Plan Twelve month follow-up renal ultrasound Orders: Orders AMB Urinalysis Automated Today Z13.9 - Encounter for screening, unspecified US renal BI 12 Months N20.0 - Calculus of kidney Patient Instructions: This note is constructed using voice recognition software. While every effort has been made to ensure accuracy it integration architect errors may have been included. Imaging studies, laboratory and physical exam results were discussed and reviewed in detail. No major barriers to patient understanding were identified. An opportunity to ask questions regarding the treatment plan was provided. All questions were answered. The patient expressed understanding and agreement with the above treatment plan. The patient is aware they should contact our office by phone for worsening of their current condition or the appearance of new urologic symptoms. Compliance is encouraged with any medications and followup testing that is ordered. It is a privilege to participate in the urologic care of your patient. If you h ave any questions or concerns regarding treatment for the above conditions, or other urologic issues, please do not hesitate to contact me. The office telephone contact is [phone]. Sincerely, Dr Cali Doll MD, TE[facility] - Urology Compassionate Specialist Care for the Genitourinary System Coding Level of Care Code New Pt Level 3 (24697) Diagnoses Nephrolithiasis N20.0
== END 2025-04-21 10:39 | disposition home or self-care (01) ==
LOC: HO.HUSH 10:07
PROVIDERS: Visit Provider Urology
DX: Z13.9 Encounter for screening, unspecified (principal); N20.0 Calculus of kidney
CPT/HCPCS: 99203

== ENCOUNTER → 2025-04-21 10:06 | Outpatient (BNVA) | payer OTHER, SELFPAY | PROVIDERS: Visit Provider Urology | DX: N20.0 Calculus of kidney (principal) | CPT/HCPCS: 81003 ==